=== PATIENT | female | born 1945 | race Caucasian/White ===

== ENCOUNTER 2018-06-01 13:51 | Outpatient (CLI) | payer OTHER | END 2018-06-01 14:24 | disposition home or self-care (01) | LOC: RAD 13:51 | DX: Z01.89 Encounter for other specified special examinations (principal) ==

== ENCOUNTER 2019-01-17 13:38 | Outpatient (CLI) | payer OTHER | END 2019-01-17 14:12 | disposition home or self-care (01) | LOC: RAD 13:38 | DX: Z12.31 Encounter for screening mammogram for malignant neoplasm of breast (principal); Z87.898 Personal history of other specified conditions; N64.89 Other specified disorders of breast; M48.00 Spinal stenosis, site unspecified; M16.0 Bilateral primary osteoarthritis of hip | CPT/HCPCS: 72148 ==

== ENCOUNTER → 2019-01-17 | Outpatient (CLI) | payer OTHER | END | disposition home or self-care (01) | LOC: NUCLEAR 14:00 | DX: M81.0 Age-related osteoporosis without current pathological fracture (principal) ==

== ENCOUNTER 2019-01-30 15:00 | Outpatient (CLI) | payer OTHER | END 2019-01-30 15:18 | disposition home or self-care (01) | LOC: TOM 15:00 | DX: G45.8 Other transient cerebral ischemic attacks and related syndromes (principal) ==

== ENCOUNTER → 2020-01-22 | Outpatient (CLI) | payer OTHER | END | disposition home or self-care (01) | LOC: MAMO-SONO 11:34 | DX: Z12.31 Encounter for screening mammogram for malignant neoplasm of breast (principal); Z87.898 Personal history of other specified conditions ==

== ENCOUNTER 2021-08-07 11:41 | Outpatient (CLI) | payer OTHER | END 2021-08-07 11:49 | disposition home or self-care (01) | LOC: RAD 11:41 | PROVIDERS: ATTEND Specialist | DX: E03.8 Other specified hypothyroidism (principal); J45.998 Other asthma; I10 Essential (primary) hypertension ==

== ENCOUNTER 2023-09-29 12:44 | Outpatient (CLI) | payer OTHER | END 2023-09-29 12:54 | disposition home or self-care (01) | LOC: MRI 12:44 | PROVIDERS: ATTEND Specialist | DX: M51.26 Other intervertebral disc displacement, lumbar region (principal); M51.36 Other intervertebral disc degeneration, lumbar region | CPT/HCPCS: 72148 ==

== ENCOUNTER 2023-09-30 08:55 | Outpatient (CLI) | payer OTHER | END 2023-09-30 09:14 | disposition home or self-care (01) | LOC: SONOGRAMA 08:55 | PROVIDERS: ATTEND Specialist | DX: K75.81 Nonalcoholic steatohepatitis (NASH) (principal) ==

== ENCOUNTER 2025-01-03 09:52 | Outpatient (CLI) | payer OTHER | END 2025-01-03 09:57 | disposition home or self-care (01) | LOC: RAD 09:52 | PROVIDERS: ATTEND Physical Medicine & Rehabilitation | DX: M72.2 Plantar fascial fibromatosis (principal); M76.60 Achilles tendinitis, unspecified leg; M76.61 Achilles tendinitis, right leg; M76.62 Achilles tendinitis, left leg ==